=== PATIENT | female | born 1945 | race Caucasian/White ===

== ENCOUNTER 2018-12-27 11:06 | Inpatient (IN) | payer OTHER ==
[2018-12-19 10:52] LABS: BASOPHILS 1.2 % (0.0-2.0); EOSINOPHILS 1.5 % (0.0-3.0); HEMATOCRIT 41.6 % (37.0-47.0); HEMOGLOBIN 13.3 gm/dL (12.0-15.0); LYMPHOCYTES 10.3 % (24.0-44.0); MCH 29.3 pg (26.0-34.0); MCV 91.4 fL (80.0-100.0); MONOCYTES 8.6 % (1.0-8.0); PLATELET COUNT 278 thou/uL (150-400); POLYS 78.4 % (36.0-66.0); RBC 4.55 mil/uL (4.20-5.00); RDW 15.9 % (10.5-14.5); WBC 7.7 thou/uL (4.0-11.0)
[2018-12-19 10:53] LABS: URINE BILIRUBIN NEGATIVE (Negative); URINE BLOOD NEGATIVE (Negative); URINE CLARITY CLEAR; URINE COLOR YELLOW; URINE GLUCOSE-RANDOM* NEGATIVE (Negative); URINE KETONES NEGATIVE (Negative); URINE LEUKOCYTES-REFLEX NEGATIVE (Negative); URINE NITRITE-REFLEX NEGATIVE (Negative); URINE PROTEIN (DIPSTICK) NEGATIVE (Negative); URINE UROBILINOGEN 0.2 E.U./dl (0.2-1.0)
[2018-12-19 11:04] LABS: APTT 28.3 Seconds (24.5-32.8); PROTIME 10.1 Seconds (9.3-11.4)
[2018-12-19 11:08] LABS: ALBUMIN 3.6 g/dL (3.4-5.0); CALCIUM 9.7 mg/dL (8.5-10.1); CREATININE 1.5 mg/dL (0.6-1.0); POTASSIUM 5.2 mmol/L (3.5-5.1); TOTAL BILIRUBIN 0.3 mg/dL (<0.1-1.0)
--- NOTE | 2018-12-19 14:11 | EKG ---
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
[2018-12-20 00:08] LABS: GLYCOHEMOGLOBIN (HGB A1C) 5.5 % (4.8-5.6)
[2018-12-27] VITALS (7 sets, daily range): BP systolic 96–119; BP diastolic 58–72
[~2018-12-27] VITALS: Ht 165.1 cm; Wt 51.3 kg
[~2018-12-27 11:06] MED LIST: ADVAIR 250-501 EACH INH; ARICEPT10 M1 PO; ASA81BEC PO; CARAFATE1 GM PO; CLONAZEPAM 0.50.5 M1 PO; FLONASE 0.05%50 MCG NASAL; FOSAMAX 70 MG T70 MG PO; IRON325 M1 PO; LEVO-T75 MCG PO; MAGNESIUM OXID400 M2 PO; MUCINEX600 MG PO; PEPCID40 MG PO; REMERON15 M2 PO; SEROQUEL 50 MG50 M1 PO; TRAVATAN Z2.5 ML OPHTHALMIC; TYLENOL EXTRA500 MG PO; VENTOLIN HFA INH8 GM INH; VITAMIN C1000 MG PO; WELLBUTRIN 75 M75 M1 PO; ZESTRIL20 MG PO
--- NOTE | 2018-12-27 16:29 | NUR ---
73YO FEMALE ADMITTED TO 247 PER BED WITH O2 AT 2L AND JERRY IN RT RADIAL ARTERY WITH CARDENE AT 5 MG/HR POST SUBXIPHOID PERICARDIOTOMY AT 1612. PATIENT ASSESSED AND ATTACHED TO CARDIAC MONITORS.
[2018-12-28] VITALS (21 sets, daily range): BP systolic 102–138; BP diastolic 57–84
[2018-12-28 05:25] LABS: HEMATOCRIT 33.4 % (37.0-47.0); HEMOGLOBIN 11.2 gm/dL (12.0-15.0); MCH 30.2 pg (26.0-34.0); MCHC 33.4 g/dL (28.0-37.0); MCV 90.3 fL (80.0-100.0); RBC 3.7 mil/uL (4.20-5.00); RDW 15.2 % (10.5-14.5); WBC 7.2 thou/uL (4.0-11.0)
[2018-12-28 05:27] LABS: CALCIUM 8.5 mg/dL (8.5-10.1); POTASSIUM 5.7 mmol/L (3.5-5.1)
--- NOTE | 2018-12-28 06:18 | NUR ---
PATIENT IS AAOX4, ON 2L NC, AND NSR ON THE MONITOR. PATIENT HAS A RIGHT RADIAL ART LINE. GRAYSON AND CHEST TUBE IS INTACT AND DRAINING TO GRAVITY. STERNAL DRESSING IS CDI. PATIENT ASSESSED PER ICU PROTOCOL. NO ACUTE EVENTS OCCURRED AND HOURLY ROUNDING COMPLETED. 0 TURNED OFF THE CARDENE DRIP. [address] BRUNO ABOUT NURSING COMMUNICATION STATING TO CHECK MG AND REPORTED THAT MG WAS 1.6 AND NO PROTOCOL WAS ORDERED. MD STATED NOT TO WORRY ABOUT IT.
--- NOTE | 2018-12-28 08:00 | NUR ---
Late entry: Assumed care of patient, she is awake and oriented. monitor shows NSR, [place] intact. hand warm to touch able to move her fingers. Chest tube intact and draining a small amt of sang, fluid. chew with >200ml. Pt prepared to eat breakfast. waiting for Dr Hester.
--- NOTE | 2018-12-28 09:27 | NUR ---
RD consult received for pt with high nutrition screening risk. Admit and s/p subxiphoid pericariotomy, pleural effusion. Has hx lung cancer. Visit this am, pt sitting up enjoying breakfast, and ate well last evening. Reorts usual wt was 116 and dropped down to low of 99 lb during cancer treatment, and now starting to regain. Likes Ensure and uses at home-ordered. Low nutrition risk at this time with appropriate nutrition interventions in place
--- NOTE | 2018-12-28 16:15 | NUR ---
INITIAL ASSESSMENT: Received consult for discharge planning. SW reviewed chart and spoke with hospitalist. Pt is POD #1 for Subxiphoid pericardiotomy. Pt has chest tube in place. Pt may transfer to CCU later today. SW met with pt at bedside. Introduced role of SW. Pt is alert/orientated x 4. Pt reports she lives at home alone. No steps to enter her home and no steps inside. Pt states that she does not have family that live locally. Her neighbor is able to help her as needed. Prior to admission, pt was independent with ADLs. No use of DME. Pt was recently on service with [facility] . They discharged her from their service. Pt's PCP is Dr. Esmer Campo. Pt is agreeable with using [facility] again if needed. SW is following to assist as needed with discharge planning.
--- NOTE | 2018-12-28 16:51 | NUR ---
late entry: 1400 Dr Kacie Allen here to see spend alot of time with the patient answering questions. 1430 PT here and pt up to the chair without problems, will cont to monitor.
--- NOTE | 2018-12-28 18:00 | NUR ---
monitor shows st. no temp today. no drainage out the chest tubes. report to oncoming RN.
[2018-12-29] VITALS (8 sets, daily range): BP systolic 77–121; BP diastolic 47–74
[2018-12-29 04:13] LABS: HEMATOCRIT 34.9 % (37.0-47.0); HEMOGLOBIN 11.4 gm/dL (12.0-15.0); MCH 29.7 pg (26.0-34.0); MCHC 32.6 g/dL (28.0-37.0); MCV 91.1 fL (80.0-100.0); PLATELET COUNT 188 thou/uL (150-400); RBC 3.83 mil/uL (4.20-5.00); RDW 15.5 % (10.5-14.5); WBC 6.6 thou/uL (4.0-11.0)
[2018-12-29 04:19] LABS: CALCIUM 8.2 mg/dL (8.5-10.1); CREATININE 1.1 mg/dL (0.6-1.0); MAGNESIUM 1.8 mg/dL (1.8-2.4); POTASSIUM 4.4 mmol/L (3.5-5.1)
--- NOTE | 2018-12-29 05:54 | NUR ---
NO OVERNIGHT EVENTS. PT. SLEPT WELL THROUGHOUT NIGHT. PT. IS HOPEFUL TO GET CHEST TUBE AND GRAYSON OUT TODAY. ASSESSMENTS AND VITAL SIGNS CHARTED. PT. IS PROGRESSING TOWARDS GOALS. CONTINUE TO FOLLOW POC. WILL CONTINUE TO MONITOR.
[2018-12-29 06:45] LABS: LARGE PLATELETS RARE
--- NOTE | 2018-12-29 07:01 | NUR ---
GRAYSON DISCONTINUED AT 0645
--- NOTE | 2018-12-29 15:07 | PATH ---
[facility] [address] [place] [address] PATHOLOGY RPT PROCEDURE Name: OMAR LEA Room #: 247-P ADM IN M.R.#: [id number] Admission: 12/27/18 Date of : 41 Discharge: Report #: [id number] Path Case #: [id number] Note [facility] Accession Number: [id number] TESTS RESULT FLAG UNITS REF RANGE LAB Clinician Provided Cytology Information No. of containers..01 Other (Miscellaneous) Source: PERICARDIAL FLUID DIAGNOSIS: 02 PERICARDIAL FLUID NEGATIVE FOR MALIGNANT EPITHELIAL CELLS. REACTIVE MESOTHELIAL CELLS ARE PRESENT. CHRONIC INFLAMMATORY CELLS ALONG WITH MACROPHAGES. Pathologist ICD10: 02 I31.3 Signed out by: Karen Dunlap MD, Pathologist NPI- [id number] Performed by: Ester Vicente Oil Field Technician ([facility]) Gross description: 01 40 ML, YELLOW, CLUMPY /LCS 03/06/1840 0000 Local FLAG LEGEND: L-Low Normal,H-High Normal,LL-Alert Low,HH-Alert High <-Panic Low,>-Panic High,A-Abnormal,AA-Critical Abnormal Performed at: [address] [place] [address] Tyree Pike MD, [address] [address] Karen Dunlap MD, Specimen Comment: A courtesy copy of this report has been sent to Specimen Comment: [phone], . Specimen Comment: Report sent to DR BRUNO / DR FUNES Performed at: [address], [place], [place] [id number] MD Tyree Pike MD Phone: [phone]
--- NOTE | 2018-12-29 15:14 | NUR ---
FAXED REFERRAL TO [facility] SPOKE WITH JORDYN IN INTAKE SHE RECEIVED REFERRAL AND CAN ACCEPT. DP TO FOLLOW.
--- NOTE | 2018-12-29 15:51 | NUR ---
SW reviewed chart and spoke with hospitalist. Pt has orders to transfer to CCU. [facility] is able to accept pt on service with discharged. Plan is for pt to discharge home with HH when medically stable. Contact info for [facility] placed in pt's discharge summary. Final discharge orders/summary will need to be faxed to HH when available. SW is available to assist as needed with discharge planning. [facility] --
--- NOTE | 2018-12-29 17:53 | NUR ---
PT ALERT AND ORIENTED X4. EATING A HEART HEALTH DIET. REMAINS ON ROOM AIR. VS STABLE. VOIDS UP WITH ASIST TO TOILET WITH NURSING STAFF . HAS CHEST TUBE IN PLACE TO SUCTION. HAS COMPLAINTS OF PAIN . TYLENOL GIVEN FOR DISCOMFORT. PT STATES RELIEF WITH TYLENOLL. CALL LIGHT WTHIN REACH IF NEEDS ASSSITANCE. VS STABLE SINUS TACHY ON THE MONITOR. WILL CONTINUE TO ASSESS AND MONITOR
--- NOTE | 2018-12-30 05:43 | NUR ---
late entry 0100 assumed care of pt sleeping at present. 0530 pt up to toilet weith assist. voiding clear yellow urine chest tube dressing dry and intact. lungs diminisherd bialt. denies chest painb nor soa. remains on room air. o2 sat 98 % will cont to monitor.
--- NOTE | 2018-12-30 05:50 | NUR ---
total of 160 cc chest tube drainage and approx 1000 cc uo this shift. resting quietly. no concerns.
--- NOTE | 2018-12-30 14:01 | NUR ---
PT IS ALERT ORIENTED X4. ON ROOM AIR. UP TO BATHROOM WITH MINIMAL ASSISTANCE FROM STAFF VOIDS PER TOILET. NO COMPLAINTS OF PAIN NOTED. ENCOURAGE HER TO EAT MORE FOOD OF HER TRAY. TAKE SMALL BITES IF NEEDED. CHEST TUBE TO SUCTION. MINIMAL OUTPUT. NO ISSUES OR CONCERNS . REPORT CALLED TO CCU/ ZOYA FUENTES TO ASSUME CARE OF PT.
[2018-12-30 14:25] VITALS: BP 116/68
--- NOTE | 2018-12-30 16:39 | NUR ---
ASSUMMED PT CARE AT APPROXIMATELY 1430. PT A&O X4. FALL PRECAUTIONS IN PLACE. ASSESSMENT CHARTED. VITAL SIGNS STABLE. PT DENIES CHEST PAIN. PT STATES SHE HAS ACUTE PAIN. PT RECEIVED ANALGESICS. PT STATED ANALGESICS RELEIVED PAIN. PT'S CHEST TUBE DRESSINGS INTACT. EDUCATED PT OF POC. PT STATED UNDERSTANDING AND DENIED HAVING FURTHER QUESTIONS. PT COMFORTABLE IN BED. PT DENIES HAVING FURTHER CONCERNS. PT AMBULATES STEADY C STANDBY.
[2018-12-30 20:10] VITALS: BP 110/68
[2018-12-31 00:24] VITALS: BP 113/69
--- NOTE | 2018-12-31 04:06 | NUR ---
ASSESSMENT DOCUMENTED.PT BEEN RESING IN NO ACUTE DISTRESS.A/OX4.VSS.CT TO SUCTION -20CM.ON RA W/O KERVIN DISTRESS.DENIES ANY CONCERNS AT THIS TIME.WILL CONT TO MONITOR PER POC.
[2018-12-31 05:00] VITALS: BP 116/63
[2018-12-31 07:05] VITALS: BP 122/57
[2018-12-31 12:00] VITALS: BP 101/53
[2018-12-31 15:52] VITALS: BP 134/81
--- NOTE | 2018-12-31 17:11 | NUR ---
ASSUMED CARE AT SHIFT CHNAGE ALERT AND ORIENTED X4. VSS AND AFEBRILE. SR ON THE MONITOR. CT INTACT AND INPLACE, C/O CT INSERTION SITE PAIN AND MEDICATED NEEDED FOR COMFORT. AND WILL CONTINUE WITH POC.
[2018-12-31 20:15] VITALS: BP 121/61
[2019-01-01 04:45] VITALS: BP 101/63
--- NOTE | 2019-01-01 05:28 | NUR ---
ASSESSMENTS CHARTED, MEDS GIVEN CHARTED. PATIENT UP AT PAIGE IN ROOM. CHEST TUBE STILL IN PLACE TO -20 SUCTION. C/O PAIN AT INSERTION SITE 06/14. PLAN FOR DAY IS TO DISCONTINUE CHEST TUBE THEN DISCHARGE IN THE MORNING. PATIENT IS LOOKING FORWARD TO GOING HOME TODAY.
[2019-01-01 08:30] VITALS: BP 113/64
[2019-01-01 10:40] VITALS: BP 113/64
[2019-01-01 10:52] VITALS: BP 113/64
[2019-01-01 12:05] VITALS: BP 113/64
--- NOTE | 2019-01-01 12:06 | NUR ---
ASSUMED CARE AT SHIFT CHANGE,ASSESMENT DOCUMENTED VSS AND AFEBRILE. CT PULLED BY SAMM, AND PATIENT TOLERATED PROCEDURE WELL. DENIES ANY DISCOMFORT AT THIS TIME AND WILL CONTINUE TO MONITOR.
[2019-01-01 12:40] VITALS: BP 100/63
--- NOTE | 2019-01-01 13:26 | NUR ---
PT DISCHARGING TODAY TO HOME WITH [facility] FAXED DC ORDERS/SUMMARY SPOKE WITH DEXTER IN INTAKE THEY RECEIVED DC ORDERS AND WILL NOTIFY PT TIME OF VISITS.
--- NOTE | 2019-01-01 14:42 | NUR ---
PT WAS DISCHARGED BEFORE O.T EVALUATION COULD BE COMPLETED.
--- NOTE | 2019-01-09 13:07 | O ---
[facility] [place] [address] OPERATIVE REPORT Name: OMAR LEA Room #: 210-P [facility] IN M.R.#: [id number] Admission: 12/27/18 Attend Phys: Chad Hester MD Discharge: 01/01/19 Date of : 41 Report #: [id number] THIS REPORT FOR: //name// CC: Fausto Hester DATE OF SERVICE: 12/27/2018 PREOPERATIVE DIAGNOSIS: Pericardial effusion. POSTOPERATIVE DIAGNOSIS: Pericardial effusion. OPERATION: Subxiphoid pericardiotomy. SURGEON: Chad Hester MD ANESTHESIA: General. INDICATIONS: The patient is a 73-year-old with recurrent pericardial effusion. The patient has a history of right lung cancer treated with radiation. The patient has had a pericardial fluid drained several times in the last year with no diagnosis. FINDINGS AND TECHNIQUE: After general anesthesia was established, an incision was made over the xiphoid region. The xiphoid was elevated and the pericardial space was cleared. An aperture was made into the pericardium. Samples of tissue were sent for permanent pathology and samples of pericardial fluid were sent for cytology. The pericardium was drained of approximately 450 mL of fluid. Hemostasis was ascertained. A 24 Jean drain was brought through separate stab wound and placed in a dependent position. Hemostasis was ascertained. The wound was closed in layers and the patient was taken to the recovery area in good condition having tolerated the procedure well. All counts were reported as correct. <ELECTRONICALLY SIGNED> By: Chad Hester MD 01/09/19 1307 1552 1611 Chad Hester MD /nt
== END 2019-01-01 12:50 | disposition home health service (06) | DRG 271 ==
LOC: ICU 11:06 → TBA 11:06 → PRE 12:35 → ICU 15:54 → PRE 12-28 09:03 → ICU 12-28 11:53 → PRE 12-28 12:42 → 2N 12-30 14:25 → ENTRNSPT 01-01 12:42 → EDTRNSPTSTS 01-01 12:46 → 2N 01-01 12:50
PROVIDERS: Nurse Practitioner; Physician Assistant; ADMIT Surgery Vascular Surgery
PROC: 0W9D0ZZ Drainage of Pericardial Cavity, Open Approach (ICD-10-PCS; principal; 2018-12-27)
DX: I31.3 Pericardial effusion (noninflammatory) (principal); J96.11 Chronic respiratory failure with hypoxia; Z85.118 Personal history of other malignant neoplasm of bronchus and lung; I10 Essential (primary) hypertension; E78.5 Hyperlipidemia, unspecified; F32.9 Major depressive disorder, single episode, unspecified; F41.9 Anxiety disorder, unspecified; E03.9 Hypothyroidism, unspecified; F03.90 Unspecified dementia, unspecified severity, without behavioral disturbance, psychotic disturbance, mood disturbance, and anxiety; K21.9 Gastro-esophageal reflux disease without esophagitis; J44.9 Chronic obstructive pulmonary disease, unspecified; E87.5 Hyperkalemia; E83.42 Hypomagnesemia; Z99.81 Dependence on supplemental oxygen; Z92.21 Personal history of antineoplastic chemotherapy; Z92.3 Personal history of irradiation; Z88.8 Allergy status to other drugs, medicaments and biological substances
CPT/HCPCS: 10078; 10081; 10203; 50010; 50101; 50386; 50455; 50497; 50662; 51467; 53358; 54118; 56524; 56525; 56526; 56527; 56528; 57092; 57093; 62110; 62900; 65020; 65040; 70005